=== PATIENT | female | born 1945 | race Caucasian/White ===

== ENCOUNTER 2019-02-07 12:28 | Emergency (ER) | payer OTHER ==
--- OUTSIDE RECORDS SUMMARY | 2019-02-07 12:46 | XMS REPORT | Summary of Care ---
:1945 Author Organization [facility] Address [address] [address] Care Team Providers Name Role Phone Braxton Worthy Primary Care Provider Reason for Referral MRI/CAT/PET Scan (Routine) Status Reason Specialty Diagnoses / Referred By Referred To Procedures Contact Contact Authorized Diagnoses Abdominal bloating Braxotn Worthy MD Procedures US PELVIC COMPLETE [address] [place] [address] MRI/CAT/PET Scan (Routine) Status Reason Specialty Diagnoses / Referred By Referred To Procedures Contact Contact Authorized Diagnoses Abdominal bloating Braxton Worthy MD Procedures US ABDOMEN COMPLETE [address] [place] [address] Refer to Department Only (Routine) Status Reason Specialty Diagnoses / Referred By Referred To Procedures Contact Contact Authorized PODIATRY / Diagnoses Bilateral foot pain Braxton Worthy Podiatry [address] [place] [address] Reason for Visit Reason Comments Labs Only last done 5.6.19 Trigger Finger bilateral second digit noted and other fingers getting worse. Gas c/o of increased gas for past year approx. Foot Pain planter facitius; also feel deformed and nails, bump between 3rd and forth toe on right foot. Encounter Details Date Type Department Care Team Description 01/29/2019 Office Visit [facility] Braxton Worthy MD Bilateral foot pain (Primary Dx); Medicine [address] Abdominal bloating; [address] [place] [address] Trigger finger of right [place], [place] [address] [phone] Allergies No Known Allergiesdocumented as of this encounter (statuses as of 01/29/2019) Medications Medication Sig Dispensed Refills Start Date End Date Status Multiple Vitamins-Iron Take 1 Tab by 0 Active (MULTIVITAMIN/IRON PO) mouth EVERY EVENING. VITAMIN D PO Take 5,000 Units 0 Active by mouth EVERY EVENING. Coenzyme Q10 (CO Q-10) Take by mouth. 0 Active 100 MG Oral Cap Cyanocobalamin (B-12 PO) Take 1,000 mcg 0 Active by mouth DAILY. acetaminophen (TYLENOL Take 1 Tab by 0 Active ARTHRITIS PAIN) 650 MG mouth NEEDED. Oral Tab CR IBUPROFEN 200 PO Take 1 Tab by 0 Active mouth NEEDED. Probiotic Product Take 1 Cap by 0 06/25/2018 Active (PROBIOTIC DAILY) Oral mouth DAILY. Cap Garden of Life PREBIOTIC PRODUCT PO Take by mouth 0 Active DAILY. Multiple Vitamins-Iron Take by mouth 0 Active (CHLORELLA PO) DAILY. documented as of this encounter (statuses as of 01/29/2019) Active Problems Problem Noted Date Status post total bilateral knee replacement 04/23/2014 Osteoarthritis of knee 06/13/2013 S/P total knee arthroplasty 04/10/2013 OA (osteoarthritis) of knee, left 02/10/2013 Knee pain 01/02/2013 Overview: Bilateral BMI 32.0-32.9,adult 01/02/2013 Hyperlipidemia RADHAMES (obstructive sleep apnea) Insomnia Post-herpetic polyneuropathy Non-toxic multinodular goiter Shingles Breast cancer Overview: left breast ,s/p partial,then radical mastectomy documented as of this encounter (statuses as of 01/29/2019) Immunizations Name Administration Dates Next Due TDAP Vaccine 08/29/2007 documented as of this encounter Social History Tobacco Use Types Packs/Day Years Used Date Never Smoker Smokeless Tobacco: Never Used Alcohol Use Drinks/Week oz/Week Comments No Sex Assigned at Date Recorded Not on file Job Start Date Occupation Industry Not on file Not on file Not on file Travel History Travel Start Travel End No recent travel history available. documented as of this encounter Last Filed Vital Signs Vital Sign Reading Time Taken Comments Blood Pressure 118/58 01/29/2019 10:55 AM EST Pulse 60 01/29/2019 10:55 AM EST Temperature - - Respiratory Rate - - Oxygen Saturation - - Inhaled Oxygen Concentration - - Weight 88.9 kg (196 lb) 01/29/2019 10:55 AM EST Height - - Body Mass Index 35.28 07/25/2018 10:52 AM EDT documented in this encounter Patient Instructions Patient InstructionsBraxton Worthy MD - 01/29/2019 11:00 AM ESTContinue same medicines Do home exercises for plantar fasciitis as shown below. Ask your son about exercises to do for trigger finger. Ask Dr. Chan to remove the lesion on your chest since it is getting bigger Get lab work today, and ultrasound of your abdomen and pelvis soon to address the gas and bloating. If all okay, return in the spring 2019 Patient Education Plantar Fasciitis Exercises About this topic Plantar fasciitis is swelling of the thick tissue on the bottom of the foot. This tissue is called the plantar fascia. It connects the heel bone to the toes and makes the arch of the foot. Exercise is an important part of making this problem better. General Before starting with a program, ask your doctor if you are healthy enough to do these exercises. Your doctor may have you work with a strainer mill operator or physical therapist to make a safe exercise program to meet your needs. Stretching Exercises Stretching exercises keep your muscles flexible. They also stop them from getting tight. Start by doing each of these stretches 2 to 3 times. In order for your body to make changes, you will need to hold these stretches for 20 to 30 seconds. Try to do the stretches 2 to 3 times each day. Do all exercises slowly. Calf stretches standing ? Stand about 12 to 18 inches (30 to 45 cm) away from a wall. Place your hands on the wall at shoulder level. Lean forward. Stretch your left leg straight behind you. Make sure the heel is flat on the floor and the knee straight. Now, bend the knee of the right leg. Be sure that the heel does not come up. Bend your left knee forward until you feel a stretch in the back ofthe calf of your right leg. This will feel strange, but it is the best way to stretch this calf muscle. Repeat on the other side. Calf stretches lying down with belt or towel ? Lie on your back with both legs straight. Loop abelt or towel around the ball of one foot. Lift the leg up , keeping the knee straight until you feela stretch in the back of your thigh. Pull down on the belt or towel to bend your foot more for a better stretch. Repeat on the other foot. This stretch gets both your calf and the hamstrings on the back of your thigh. Calf stretches on stairs ? Stand on a step and hold onto a rail. Position your feet so only theballs of your feet are on the step. Lower both heels until you feel a stretch in the back of your calves. Do not do this stretch if you have trouble with balance. Crossed leg foot stretches ? Sit in a chair. Bend one leg up and rest the outside of the foot on the knee. Grab your foot and pull your toes and foot forward until you feel a stretch along the bottom of your foot. Repeat with the other foot. Rolling foot ? Use a golf ball, tennis ball, soup can, a frozen water bottle, or a rolling pin for this exercise. Sit in a sturdy chair. Put the ball , can, or rolling pin underneath your sore foot. Push down firmly and roll it back and forth with your foot for 1 to 2 minutes. Work up to 3 to 4 minutes. If this exercise is too easy, try doing it while standing up with more pressure on the foot. Do this exercise last if you use a frozen water bottle. Heated tissue stretches better than cold tissue. Doing this last with a frozen water bottle can help lessen the pain and swelling that may happen with stretching. Strengthening Exercises Strengthening exercises keep your muscles firm and strong. Start by repeating each exercise 2 to 3 times. Work up to doing each exercise 10 times. Try to do the exercises 2 to 3 times each day. Do all exercises slowly. Towel pick-ups ? Sit in a chair with your feet flat on the floor. Make sure you do not have shoes or socks on your feet. Place a towel under one foot with one end of the towel lined up with your heel. Keep your heel on the floor and try grabbing the towel with your toes. Gradually work it back until there is no more towel to move. Now, try pushing the towel back out while keeping your heel still. You can make this harder by putting a small weight on the end of the towel. What will the results be? Less pain Less pulling Less swelling Better flexibility and range of motion Easier to walk and do other activities Helpful tips Stay active and work out to keep your muscles strong and flexible. Keep a healthy weight to avoid putting too much stress on your joints. Eat a healthy diet to keep your muscles healthy. Be sure you do not hold your breath when exercising. This can raise your blood pressure. If youtend to hold your breath, try counting out loud when exercising. If any exercise bothers you, stop right away. Always warm up before stretching. Heated muscles stretch much easier than cool muscles. Stretching cool muscles can lead to injury. Try walking or cycling at an easy pace for a few minutes to warm up your muscles. Do this againafter exercising. Never bounce when doing stretches. Doing exercises before a meal may be a good way to get into a routine. After exercising, it is a good idea to ice the bottom of your foot. A good way to do this is bysitting in a chair and rolling a frozen water bottle back and forth under your foot. Do not do this longer than 15 to 20 minutes. Exercise may be slightly uncomfortable, but you should not have sharp pains. If you do get sharp pains, stop what you are doing. If the sharp pains continue, call your doctor. Where can I learn more? [employer] http://orthoinfo.aaos.org/topic.cfm?ntvkp=l71012 [employer] http://www.aafp.org/afp/2000/0201/p477.html Last Reviewed Date 2016-01-17 Consumer Information Use and Disclaimer This information is not specific medical advice and does not replace information you receive from your health care provider. This is only a brief summary of general information. It does NOT include allinformation about conditions, illnesses, injuries, tests, procedures, treatments, therapies, discharge instructions or life-style choices that may apply to you. You must talk with your health care provider for complete information about your health and treatment options. This information should not beused to decide whether or not to accept your health care providers advice, instructions or recommendations. Only your health care provider has the knowledge and training to provide advice that isright for you. Copyright Copyright 2019 [employer] and its affiliates and/or licensors. All rights reserved. documented in this encounter Progress Notes Braxton Worthy MD - 01/29/2019 11:00 AM EST PATIENT: Mignon Pena : 1945 DATE OF SERVICE: 01/29/2019 CHIEF COMPLAINT: Chief Complaint Patient presents with Labs Only last done 5.6.19 Trigger Finger bilateral second digit noted and other fingers getting worse. Gas c/o of increased gas for past year approx. Foot Pain planter facitius; also feel deformed and nails, bump between 3rd and forth toe on right foot. Subjective HISTORY OF PRESENT ILLNESS: Mignon Pena is a 73-y.o. female. HPI Feet more painful, and she suspects she has plantar fasciitis, also has callus between toes. Can't wear some shoes. Her urged her to visit manager environmental health, gave her names of ones in [place] and locally Bump on chest. Saw Dr Chan- told to put HCT cream bid, but it is not going away and its actually getting bigger. Told her to return to Dr. Chan Trigger fingers still bothering. Had steroid inj with Dr Hogue, and he showed her how to splint.Still locks in AM. We talked about what causes trigger fingers and what else can be done. She willask her son, who is a physical therapist, for home exercise regimen. More gas, taking prebiotic and probiotic. Perhaps due to beans, also discussed lactose, and FODMAPsapproach to assessing whether foods are the cause. Told her she could use simethicone as needed. Prior lab work was satisfactory. Those results are shown below. Lab on 07/29/2018 Component Date Value Ref Range Status Thyroid Peroxidase Ab 07/29/2018 14* <9 IU/ML Final Thyroglobulin Ab 07/29/2018 <1 <OR=1 IU/ML Final T3,Free 07/29/2018 3.32 2.27 - 6.16 pg/ml Final Free T4 07/29/2018 0.9 0.8 - 2.2 NG/DL Final TSH 07/29/2018 4.79* 0.47 - 4.68 uIu/ml Final Vitamin D 25 HYDROXY 07/29/2018 53.6 32.0 - 100.0 ng/ml Final WBC Count 07/29/2018 5.07 3.98 - 10.04 K/uL Final RBC Count 07/29/2018 5.04 3.93 - 5.22 M/UL Final Hemoglobin 07/29/2018 14.4 11.2 - 15.7 G/DL Final Hematocrit 07/29/2018 45.7* 34.1 - 44.9 % Final MCV 07/29/2018 90.7 79.4 - 94.8 FL Final MCH 07/29/2018 28.6 25.6 - 32.2 PG Final MCHC 07/29/2018 31.5* 32.2 - 35.5 g/dL Final Platelet Count 07/29/2018 195 182 - 369 K/uL Final MPV 07/29/2018 10.5 9.4 - 12.3 FL Final RDW 07/29/2018 12.8 11.7 - 14.4 % Final Neutrophil % 07/29/2018 58.3 34.0 - 71.1 % Final Lymphocyte % 07/29/2018 26.0 19.3 - 51.7 % Final Monocyte % 07/29/2018 10.8 4.7 - 12.5 % Final Eosinophil % 07/29/2018 4.1 0.7 - 5.8 % Final Basophil % 07/29/2018 0.4 0.1 - 1.2 % Final nRBC % 07/29/2018 0.0 0.0 - 0.2 % Final Neutrophil # 07/29/2018 2.95 1.56 - 6.13 K/UL Final Lymphocyte # 07/29/2018 1.32 1.18 - 3.74 K/UL Final Monocyte # 07/29/2018 0.55 0.24 - 0.86 K/UL Final Eosinophil # 07/29/2018 0.21 0.04 - 0.36 K/UL Final Basophil # 07/29/2018 0.02 0.01 - 0.08 K/UL Final Immature Gran % 07/29/2018 0.4 0.0 - 0.4 % Final Immature Gran # 07/29/2018 0.02 0.00 - 0.03 K/uL Final NRBC # 07/29/2018 0.00 0.00 - 0.12 K/uL Final Sodium 07/29/2018 142 134 - 145 mmol/L Final Potassium 07/29/2018 4.3 3.5 - 5.1 mmol/L Final Chloride 07/29/2018 109* 98 - 107 mmol/L Final CO2 07/29/2018 24 22 - 30 mmol/L Final Calcium 07/29/2018 10.4* 8.3 - 10.1 mg/dl Final Albumin 07/29/2018 3.9 3.5 - 5.0 g/dl Final BUN 07/29/2018 25* 7 - 17 mg/dl Final Creatinine 07/29/2018 0.7 0.7 - 1.2 mg/dl Final Glucose 07/29/2018 88 70 - 99 mg/dl Final Total Protein 07/29/2018 6.8 6.3 - 8.2 g/dl Final Total Bilirubin 07/29/2018 0.5 0.0 - 1.1 MG/DL Final AST 07/29/2018 29 15 - 46 U/L Final ALT 07/29/2018 25 9 - 52 U/L Final Alkaline Phosphatase 07/29/2018 77 40 - 150 U/L Final eGFR 07/29/2018 >60 See Interpretation Below ml/min/1.73ml Sq Final Estimated GFR Interpretation: Above 60ml/min/1.73m2 = Normal Renal Function 30-59 ml/min/1.73m2 = Stage 3 Chronic Kidney Disease 15-29 ml/min/1.73m2 = Stage 4 Chronic Kidney Disease Less than 15 ml/min/1.73m2 = Stage 5 Chronic Kidney Disease The GFR value is calculated using the Modification of Diet in Renal Disease ( MDRD) Study Equation which can be found at: https://www.kidney.org/content/bwft-nxreq-wdudowcx BUN/Creatinine Ratio 07/29/2018 36* 6 - 22 RATIO Final Anion Gap 07/29/2018 9 3 - 11 mmol/L Final A/G Ratio 07/29/2018 1.3 0.8 - 2.0 ratio Final Cholesterol 07/29/2018 165 <200 mg/dl Final HDL Cholesterol 07/29/2018 55 >50 mg/dl Final Triglycerides 07/29/2018 83 <150 mg/dl Final LDL Cholesterol 07/29/2018 93 <100 MG/DL Final Cholesterol / HDL Ratio 07/29/2018 3.0 RATIO Final LDL / HDL Ratio 07/29/2018 1.7 Final Non-HDL Cholesterol 07/29/2018 110 0 - 130 MG/DL Final Cardio CRP 07/29/2018 0.29 0.00 - 1.00 mg/L Final Past Medical History: Diagnosis Date Abnormal mammogram, unspecified Breast cancer (HCC) left breast ,s/p partial,then radical mastectomy Cancer (HCC) Hernia of unspecified site of abdominal cavity without mention of obstruction or gangrene Hyperlipidemia Insomnia Non-toxic multinodular goiter RADHAMES (obstructive sleep apnea) auto CPAP Osteoarthritis Post-herpetic polyneuropathy Shingles Family History Problem Relation Age of Onset Arthritis Mother Cancer Mother breast cancer + skin cancer Diabetes Mother Hypertension Mother Thyroid Disease Mother Cancer Father thyroid Thyroid Disease Father Current Outpatient Medications Medication Sig acetaminophen (TYLENOL ARTHRITIS PAIN) 650 MG Oral Tab CR Take 1 Tab by mouth NEEDED. Coenzyme Q10 (CO Q-10) 100 MG Oral Cap Take by mouth. Cyanocobalamin (B-12 PO) Take 1,000 mcg by mouth DAILY. IBUPROFEN 200 PO Take 1 Tab by mouth NEEDED. Multiple Vitamins-Iron (CHLORELLA PO) Take by mouth DAILY. Multiple Vitamins-Iron (MULTIVITAMIN/IRON PO) Take 1 Tab by mouth EVERY EVENING. PREBIOTIC PRODUCT PO Take by mouth DAILY. Probiotic Product (PROBIOTIC DAILY) Oral Cap Take 1 Cap by mouth DAILY. Garden of Life VITAMIN D PO Take 5,000 Units by mouth EVERY EVENING. No current facility-administered medications for this visit. No Known Allergies Social History Socioeconomic History Marital status: Spouse name: Not on file Number of children: Not on file Years of education: Not on file Highest education level: Not on file Occupational History Not on file Social Needs Financial resource strain: Not on file Food insecurity: Worry: Not on file Inability: Not on file Transportation needs: Medical: Not on file Non-medical: Not on file Tobacco Use Smoking status: Never Smoker Smokeless tobacco: Never Used Substance and Sexual Activity Alcohol use: No Drug use: No Sexual activity: Not on file Lifestyle Physical activity: Days per week: Not on file Minutes per session: Not on file Stress: Not on file Relationships Social connections: Talks on phone: Not on file Gets together: Not on file Attends latter day service: Not on file Active member of club or organization: Not on file Attends meetings of clubs or organizations: Not on file Relationship status: Not on file Intimate partner violence: Fear of current or ex partner: Not on file Emotionally abused: Not on file Physically abused: Not on file Forced sexual activity: Not on file Other Topics Concern Not on file Social History Narrative Not on file REVIEW OF SYSTEMS: ROS see history of present illness otherwise noncontributory Objective PHYSICAL EXAM: VITALS: BP 118/58 (BP Location: Right arm, Patient Position: Sitting) | Pulse 60 | Wt 196 lb (88.9 kg) | BMI 35.28 kg/m Body mass index is 35.28 kg/m . Physical Exam Alert, oriented, in no acute distress. Vitals as above. HEENT: Normocephalic, atraumatic. GERALDO, EOMI. Mouth and ears unremarkable. Neck: No palpable lymphadenopathy in the submandibular, submental, anterior cervical, posterior cervical, or occipital chains, nor in the supraclavicular spaces. No JVD, thyromegaly. LUNGS: clear. Chest wall with keratotic lesion anteriorly and superiorly, has irregular borders, approximately 4 mm diameter HEART: Regular rate and rhythm. ABDOMEN: positive bowel sounds, soft, nontender, no hepatosplenomegaly, masses or bruits. EXTREMITIES: no cyanosis, clubbing, or edema. Some fingers with slight triggering mechanism. Some soreness to palpation of the heels, callus between right third and fourth toes. ASSESSMENT / IMPRESSION: ICD-9-CM ICD-10-CM 1. Bilateral foot pain 729.5 M79.671 REFER TO PODIATRY M79.672 2. Abdominal bloating 787.3 R14.0 CELIAC DISEASE PANEL US ABDOMEN COMPLETE US PELVIC COMPLETE CELIAC DISEASE PANEL 3. Trigger finger of right hand, unspecified finger 727.03 M65.30 4. Skin lesion on chest doubt malignancy but since it is growing told her to return to Patient Instructions Continue same medicines Do home exercises for plantar fasciitis as shown below. Ask your son about exercises to do for trigger finger. Ask Dr. Chan to remove the lesion on your chest since it is getting bigger Get lab work today, and ultrasound of your abdomen and pelvis soon to address the gas and bloating. If all okay, return in the spring 2019 Patient Education Plantar Fasciitis Exercises About this topic Plantar fasciitis is swelling of the thick tissue on the bottom of the foot. This tissue is called the plantar fascia. It connects the heel bone to the toes and makes the arch of the foot. Exercise is an important part of making this problem better. General Before starting with a program, ask your doctor if you are healthy enough to do these exercises. Your doctor may have you work with a strainer mill operator or physical therapist to make a safe exercise program to meet your needs. Stretching Exercises Stretching exercises keep your muscles flexible. They also stop them from getting tight. Start by doing each of these stretches 2 to 3 times. In order for your body to make changes, you will need to hold these stretches for 20 to 30 seconds. Try to do the stretches 2 to 3 times each day. Do all exercises slowly. Calf stretches standing ? Stand about 12 to 18 inches (30 to 45 cm) away from a wall. Place your hands on the wall at shoulder level. Lean forward. Stretch your left leg straight behind you. Make sure the heel is flat on the floor and the knee straight. Now, bend the knee of the right leg. Be sure that the heel does not come up. Bend your left knee forward until you feel a stretch in the back ofthe calf of your right leg. This will feel strange, but it is the best way to stretch this calf muscle. Repeat on the other side. Calf stretches lying down with belt or towel ? Lie on your back with both legs straight. Loop abelt or towel around the ball of one foot. Lift the leg up , keeping the knee straight until you feela stretch in the back of your thigh. Pull down on the belt or towel to bend your foot more for a better stretch. Repeat on the other foot. This stretch gets both your calf and the hamstrings on the back of your thigh. Calf stretches on stairs ? Stand on a step and hold onto a rail. Position your feet so only theballs of your feet are on the step. Lower both heels until you feel a stretch in the back of your calves. Do not do this stretch if you have trouble with balance. Crossed leg foot stretches ? Sit in a chair. Bend one leg up and rest the outside of the foot on the knee. Grab your foot and pull your toes and foot forward until you feel a stretch along the bottom of your foot. Repeat with the other foot. Rolling foot ? Use a golf ball, tennis ball, soup can, a frozen water bottle, or a rolling pin for this exercise. Sit in a sturdy chair. Put the ball , can, or rolling pin underneath your sore foot. Push down firmly and roll it back and forth with your foot for 1 to 2 minutes. Work up to 3 to 4 minutes. If this exercise is too easy, try doing it while standing up with more pressure on the foot. Do this exercise last if you use a frozen water bottle. Heated tissue stretches better than cold tissue. Doing this last with a frozen water bottle can help lessen the pain and swelling that may happen with stretching. Strengthening Exercises Strengthening exercises keep your muscles firm and strong. Start by repeating each exercise 2 to 3 times. Work up to doing each exercise 10 times. Try to do the exercises 2 to 3 times each day. Do all exercises slowly. Towel pick-ups ? Sit in a chair with your feet flat on the floor. Make sure you do not have shoes or socks on your feet. Place a towel under one foot with one end of the towel lined up with your heel. Keep your heel on the floor and try grabbing the towel with your toes. Gradually work it back until there is no more towel to move. Now, try pushing the towel back out while keeping your heel still. You can make this harder by putting a small weight on the end of the towel. What will the results be? Less pain Less pulling Less swelling Better flexibility and range of motion Easier to walk and do other activities Helpful tips Stay active and work out to keep your muscles strong and flexible. Keep a healthy weight to avoid putting too much stress on your joints. Eat a healthy diet to keep your muscles healthy. Be sure you do not hold your breath when exercising. This can raise your blood pressure. If youtend to hold your breath, try counting out loud when exercising. If any exercise bothers you, stop right away. Always warm up before stretching. Heated muscles stretch much easier than cool muscles. Stretching cool muscles can lead to injury. Try walking or cycling at an easy pace for a few minutes to warm up your muscles. Do this againafter exercising. Never bounce when doing stretches. Doing exercises before a meal may be a good way to get into a routine. After exercising, it is a good idea to ice the bottom of your foot. A good way to do this is bysitting in a chair and rolling a frozen water bottle back and forth under your foot. Do not do this longer than 15 to 20 minutes. Exercise may be slightly uncomfortable, but you should not have sharp pains. If you do get sharp pains, stop what you are doing. If the sharp pains continue, call your doctor. Where can I learn more? [employer] [email or web address] [employer] [email or web address]://[email or web address].org/[email or web address]/[email or web address]/[email or web address].html Last Reviewed Date 2016-01-17 Consumer Information Use and Disclaimer This information is not specific medical advice and does not replace information you receive from your health care provider. This is only a brief summary of general information. It does NOT include allinformation about conditions, illnesses, injuries, tests, procedures, treatments, therapies, discharge instructions or life-style choices that may apply to you. You must talk with your health care provider for complete information about your health and treatment options. This information should not beused to decide whether or not to accept your health care providers advice, instructions or recommendations. Only your health care provider has the knowledge and training to provide advice that isright for you. Copyright Copyright 2019 [employer] and its affiliates and/or licensors. All rights reserved. Author: Braxton Worthy MD 01/29/2019 11:23 documented in this encounter Plan of Treatment Date Type Specialty Care Team Description 01/30/2019 Ancillary Procedure Radiology 01/30/2019 Ancillary Procedure Radiology Name Type Priority Associated Diagnoses Date/Time CELIAC DISEASE PANEL Lab Routine Abdominal bloating 01/29/2019 12:05 PM EST CELIAC DISEASE PANEL Lab Routine Abdominal bloating 01/29/2019 12:05 PM EST Name Type Priority Associated Diagnoses Order Schedule US ABDOMEN COMPLETE Imaging Routine Abdominal bloating Expected: 01/29/2019 , Expires: 01/29/2020 US PELVIC COMPLETE Imaging Routine Abdominal bloating Expected: 01/29/2019, Expires: 01/29/2020 Name Type Priority Associated Diagnoses Order Schedule REFER TO PODIATRY Referral Routine Bilateral foot pain Expected: 01/29/2019 , Expires: 01/30/2020 Health Maintenance Due Date Last Done Comments MEDICARE ANNUAL WELLNESS 1945 VISIT MAMMOGRAM (SCREENING) 1983 ZOSTER IMMUNIZATION SERIES (1 09/02/1993 of 2) PNEUMOCOCCAL 65+YRS (1 of 2 - 09/02/2008 PCV13) DEPRESSION SCREENING 07/26/2019 07/25/2018 FALL RISK ASSESSMENT 07/26/2019 07/25/2018, 07/25/2018 INFLUENZA VACCINE (#1) 2020 Postponed from 11/24/2018 (Patient refused) LIPID DISORDER SCREENING 07/30/2023 07/29/2018 COLONOSCOPY SCREENING 11/22/2025 11/23/2015 OSTEOPOROSIS SCREENING 05/01/2027 05/01/2017 HPV IMMUNIZATION SERIES Aged Out No longer eligible based on patient's age to complete this topic MENINGOCOCCAL VACCINE IMM Aged Out No longer eligible based on patient's age to complete this topic documented as of this encounter Implants Implanted Type [facility] Manager Device Shelf Model / Identifier Expiration Serial / Lot Date Ventralex Patch -Med 6.4x6.4 - [id number] Ventral [employer] [id number] / Implanted: Qty: 1 on 03/14/2010 at [facility] / [id number] Smart Set Bone Cement W/ Gentimy - [id number] [id number] / Implanted: Qty: 1 on 02/24/2013 by Nba Gerber MD at [facility] / Smart Set Cement - [id number] DEPUY [id number] / Implanted: Qty: 1 on 02/24/2013 by Nba Gerber MD at [facility] / [id number] Tibial Plate Size 4 Nexgen - [id number] YANILOPEZ COOK [id number] / Implanted: Qty: 1 on 02/24/2013 by Nba Gerber MD at [facility] 2 / [id number] Patella, 32mm Nexgen - [id number] YANI JOEY [id number] 2020 / Implanted: Qty: 1 on 02/24/2013 by Nba Gerber MD at [facility] 2 / [id number] Lps-Flex Option Femoral D Left - [id number] YANI COOK [id number] 11/23/2022 [id number] / Implanted: Qty: 1 on 02/24/2013 by Nba Gerber MD at [facility] 1 / [id number] Art Surface 10mm Yellow - [id number] YANI COOK [id number] 2020 [id number] / Implanted: Qty: 1 on 02/24/2013 by Nba Gerber MD at [facility] 0 / [id number] Tibial Plate Size 4 Nexgen - [id number] Right: Knee YANI COOK [id number] 05/24/2023 / Implanted: Qty: 1 on 06/30/2013 by Nba Gerber MD at [facility] 2 / [id number] Lps-Flex Option Femoral D Rt - [id number] Right: Knee YANI COOK [id number] 11/23/2022 / Implanted: Qty: 1 on 06/30/2013 by Nba Gerber MD at [facility] 2 / [id number] Art Surface 12mm Yellow - [id number] YANI COOK [id number] 2020 / Implanted: Qty: 1 on 06/30/2013 by Nba Gerber MD at [facility] 2 / [id number] Smart Set Bone Cement W/ Gentimy - [id number] Right: Knee DEPUY [id number] / Implanted: Qty: 1 on 06/30/2013 by Nba Gerber MD at [facility] / [id number] Smart Set Cement - [id number] Right: Knee DEPUY [id number] / Implanted: Qty: 1 on 06/30/2013 by Nba Gerber MD at [facility] / [id number] documented as of this encounter Results Not on filedocumented in this encounter Visit Diagnoses Diagnosis Bilateral foot pain - Primary Pain in limb Abdominal bloating Flatulence, eructation, and gas pain Trigger finger of right hand, unspecified finger documented in this encounter Insurance Payer Benefit Plan / Subscriber ID Effective Dates Phone Address Type Group AETNA MEDICARE AETNA MEDICARE xxxxxxxx 2017-Present [employer] ADVANTAGE ADVANTAGE Guarantor Name Account Type Relation to Date of Phone Billing Patient Address Mignon Pena Personal/Family 1945 [phone] [phone] [place], [place] (Work) [id number] documented as of this encounter Advance Directives Type Date Recorded Patient Systems Security Consultant Explanation Advance Directives 12/09/2015 7:30 AM Health Care Proxy"
--- NOTE | 2019-02-07 15:08 | ED ---
Palpitations / Dysrhythmia - HPI Summary HPI Summary: 73 year old F presenting to [facility] from [facility] accompanied by complains of irregular rhythm which lasted 3 hours this morning. States she woke up this morning with a nervous feeling and irregular rhythm. Went to [facility] where she had an EKG done which showed atrial fibrillation. Went to [facility] after [facility] where irregular rhythm had resolved. Patient was referred to the ED. Notes similar episode several years ago which also resolved on its own. Patient denies fever, chills, erythema of eyes, sore throat, chest pain, shortness of breath, cough, abdominal pain, nausea/vomiting, dysuria, hematuria, myalgia, edema, rash, or dizziness. The patient rates the pain 0/10 in severity. Symptoms aggravated by nothing. Symptoms alleviated by nothing. Has been watching thyroid antibodies which have been increasing. Never been on thyroid medications. Never smoked. Does not drink caffeine. - History of Current Complaint Chief Complaint: EDDysrhythmPalp Time Seen by Provider: 02/07/19 15:05 Hx Obtained From: Patient Onset/Duration: Lasting Hours, Still Present Timing: Constant Severity Currently: None Aggravating: Nothing Alleviating: Nothing Associated Signs & Symptoms: Negative - fever, chills, erythema of eyes, sore throat, chest pain, shortness of breath, cough, abdominal pain, nausea/vomiting , dysuria, hematuria, myalgia, edema, rash, or dizziness - Allergy/Home Medications Allergies/Adverse Reactions: Allergies Allergy/AdvReac Type Severity Reaction Status Date / Time No Known Allergies Allergy Verified 02/26/14 17:11 Home Medications: Home Medications Cholecalciferol TAB* [Vitamin D TAB*] 1,000 unit PO DAILY 02/07/19 [History Confirmed 02/07/19] Cyanocobalamin TAB* [Vitamin B12 TAB*] 500 mcg PO DAILY 02/07/19 [History Confirmed 02/07/19] L.acidoph,Paracasei, B.lactis [Probiotic] 1 each PO DAILY 02/07/19 [History Confirmed 02/07/19] Multivitamins/Minerals TAB* [Theragran/minerals TAB*] 1 tab PO DAILY 02/07/19 [ History Confirmed 02/07/19] PMH/Surg Hx/FS Hx/Imm Hx Cardiovascular History: Denies: Hx Coronary Artery Disease, Hx Myocardial Infarction GI History: Denies: Hx Ulcer - Cancer History Hx Chemotherapy: No Hx Radiation Therapy: No - Surgical History Surgery Procedure, Year, and Place: bilateral knee replacements. umbilical hernia repair. left mastectomy. pilonidal cyst removed. Tonsils and addenoids removed Infectious Disease History: No Infectious Disease History: Denies: Traveled Outside the [place] in Last 30 Days - Family History Known Family History: Positive: Other - breast cancer mother - Social History Alcohol Use: Rare Substance Use Type: Reports: None Hx Tobacco Use: No Smoking Status (MU): Never Smoked Tobacco Review of Systems Negative: Fever, Chills Negative: Erythema Negative: Sore Throat Positive: Other - irregular rhythm. Negative: Chest Pain Negative: Shortness Of Breath, Cough Negative: Abdominal Pain, Vomiting, Nausea Negative: dysuria, flank pain Negative: Myalgia, Edema Negative: Rash Neurological: Negative - Dizziness All Other Systems Reviewed And Are Negative: Yes Physical Exam - Summary Physical Exam Summary: Constitutional: Well-developed, Well-nourished, Alert. (-) Distressed Skin: Warm, Dry HENT: Normocephalic; Atraumatic Eyes: Conjunctiva normal Neck: Musculoskeletal ROM normal neck. (-) JVD, (-) Stridor, (-) Tracheal deviation Cardio: Rhythm regular, rate normal, Heart sounds normal; Intact distal pulses; The pedal pulses are 2+ and symmetric. Radial pulses are 2+ and symmetric. (-) Murmur Pulmonary/Chest wall: Effort normal. (-) Respiratory distress, (-) Wheezes, (-) Rales Abd: Soft, (-) tenderness, (-) Distension, (-) Guarding, (-) Rebound Musculoskeletal: (-) Edema Lymph: (-) Cervical adenopathy Neuro: Alert, Oriented x3 Psych: Mood and affect Normal Triage Information Reviewed: Yes Vital Signs On Initial Exam: Initial Vitals Temp Pulse Resp BP Pulse Ox 97.5 F 72 19 160/86 97 02/07/19 12:39 02/07/19 12:39 02/07/19 12:39 02/07/19 12:39 02/07/19 12:39 Vital Signs Reviewed: Yes Procedures - Sedation Patient Received Moderate/Deep Sedation with Procedure: No Diagnostics - Vital Signs Vital Signs Temp Pulse Resp BP Pulse Ox 02/07/19 14:18 97.8 F 57 17 145/92 98 02/07/19 12:39 97.5 F 72 19 160/86 97 - Laboratory Result Diagrams: 02/07/19 15:36 02/07/19 15:36 Lab Statement: Any lab studies that have been ordered have been reviewed, and results considered in the medical decision making process. - EKG 1232 Cardiac Rate: NL - 69 BPM EKG Rhythm: Sinus Rhythm Course/Dx - Course Course Of Treatment: 73 year old F from [facility] complains of irregular rhythm which lasted 3 hours this morning. Similar episode several years ago which also resolved on its own. Physical exam unremarkable. Bloodwork results with no significant abnormalities except for RBC 5.17, BUN/ creatinine 21.7, calcium 11.0. An EKG shows NSR 69 BPM. Spoke with cardiology who recommended initiating anticoagulation due to multiple risk factors for embolic disease. I discussed with the patient at length her multiple risk factors for thromboembolic disease related to her atrial fibrillation, including the significant increased risk of stroke. I discussed with her the recommendation for anticoagulation, she was unwilling to pursue this treatment, she focused on the paroxysmal nature of her atrial fibrillation. I did reinforce with her that her thromboembolic risk remains even though her atrial fibrillation is paroxysmal. She wished to be discharged without the recommended treatment. 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 Patient will be discharged home with follow up from Dr. Worthy and Dr. Quigley in 2-3 days. Patient was instructed to return to Emergency Department for new or worsening symptoms. Patient understands and is agreeable to this plan. - Diagnoses Provider Diagnoses: Paroxysmal atrial fibrillation - Physician Notifications Discussed Care Of Patient With: Sreedhar Guzman - recommended initiating anticoagulation due to multiple risk factors for embolic disease. Time Discussed With Above Provider: 16:00 Discharge ED - Sign-Out/Discharge Documenting (check all that apply): Patient Departure - Discharge Plan Condition: Good Disposition: HOME Patient Education Materials: A-fib (Atrial Fibrillation) (ED), Blood Thinners ( ED) Referrals: Braxton Worthy MD [Primary Care Provider] - 2 Days Sreedhar Guzman MD [Medical Doctor] - 2 Days Additional Instructions: Follow up with Dr. Worthy and Dr. Guzman in 2-3 days. Return to the Emergency Department with new or worsening symptoms. - Attestation Statements Document Initiated by Scribe: Yes Documenting Scribe: Harleen Pulido Provider For Whom Scribe is Documenting (Include Credential): Aquiles Buck MD Scribe Attestation: IHarleen, scribed for Aquiles Buck MD on 02/07/19 at 1738. Status of Scribe Document: Ready
[2019-02-07 15:54] LABS: ABS Eosinophils 0.1 10^3/ul (0-0.6); ABS Lymphocytes 1.4 10^3/ul (1.0-4.8); ABS Monocytes 0.7 10^3/ul (0-0.8); ABS Neutrophils 5.3 10^3/ul (1.5-7.7); Hematocrit 46 % (35-47); Hemoglobin 15.2 g/dL (12.0-16.0); Lymphocyte % 18.4 %; Mean Corpuscular HGB Conc 34 g/dL (31-36); Mean Corpuscular Hemoglobin 29 pg (27-31); Mean Corpuscular Volume 88 fL (80-97); Mean Platelet Volume 7.9 fL (7.4-10.4); Platelet Count 212 10^3/uL (150-450); Red Blood Count 5.17 10^6 /uL (3.70-4.87); Red Cell Distribution Width 13 % (10-15); White Blood Count 7.6 10^3/uL (3.5-10.8)
[2019-02-07 16:15] LABS: Troponin I 0.01 ng/mL (<0.04)
[2019-02-07 16:29] LABS: Albumin/Globulin Ratio 1.7 (1-3); BUN/Creatinine Ratio 21.7 (8-20); EGFR African American 100.4 (>60); EGFR Non-African American 82.9 (>60); Globulin 2.4 g/dL (2-4); Magnesium 2.1 mg/dL (1.9-2.7); Potassium 3.9 mmol/L (3.5-5.0); Total Bilirubin 0.5 mg/dL (0.2-1.0); Total Protein 6.4 g/dL (6.4-8.9)
[2019-02-07 17:41] VITALS: BP 137/83
[2019-02-07 17:48] LABS: TSH (Thyroid Stimulating Horm) 2.99 mcIU/mL (0.34-5.60)
[2019-02-07 17:51] LABS: Free T4 0.82 ng/dL (0.61-1.12)
== END 2019-02-07 17:43 | disposition home or self-care (01) ==
LOC: ED 12:28
DX: I48.0 Paroxysmal atrial fibrillation (principal); Z96.653 Presence of artificial knee joint, bilateral; Z90.12 Acquired absence of left breast and nipple; Z79.899 Other long term (current) drug therapy
CPT/HCPCS: 36415; 80053; 83605; 83735; 84439; 84443; 84484; 85025; 93005; 99282